=== PATIENT | female | born 1965 | race Caucasian/White ===

== ENCOUNTER 2023-10-13 20:14 | Inpatient (IN) ==
[2023-10-13] MEDS ORDERED: IOPAMIDOL 100 ML BOTTLE IV ONE (20:15)
[2023-10-13] MEDS ORDERED: 0.9 % SODIUM CHLORIDE 1,000 ML IV ONE (20:28)
[2023-10-13 21:05] LABS: Basophils # (Auto) 0.05 K/mcL (0.00-0.30); Basophils % (Auto) 0.4 % (0.0-2.0); Eosinophils # (Auto) 0.02 K/mcL (0.00-0.70); Eosinophils % (Auto) 0.1 % (0.0-7.0); Hematocrit 41.7 % (34.1-44.9); Hemoglobin 14.6 g/dL (11.2-15.7); Lymphocytes # (Auto) 1.33 K/mcL (1.50-4.80); Lymphocytes % (Auto) 9.5 % (15.5-49.0); Mean Platelet Volume 8.8 fL (8.8-12.5); Monocytes # (Auto) 1.16 K/mcL (0.10-0.90); Monocytes % (Auto) 8.3 % (1.0-12.0); Neutrophils % (Auto) 81.2 % (38.0-78.0); Platelet Count 442 K/mcL (140-440); RBC 3.79 M/mcL (3.59-5.38); Red Cell Distribution Width 12.1 % (11.5-14.5)
[2023-10-13 21:09] LABS: ALT/SGPT 15 U/L (<40); AST/SGOT 23 U/L (<32); Albumin 3.6 gm/dL (3.2-5.2); Albumin/Globulin Ratio 0.9 (1.0-2.3); Alkaline Phosphatase 156 U/L (39-117); Bilirubin,Total 0.7 mg/dL (0.1-1.0); Blood Urea Nitrogen 9 mg/dL (6-20); Calcium 9.4 mg/dL (8.6-10.4); Carbon Dioxide 30 mmol/L (22-30); Chloride 89 mmol/L (96-108); Globulin 4.1 gm/dL (2.2-3.7); Glomerular Filtration Rate 94; Glucose 117 mg/dL (70-105)
[2023-10-13 21:25] LABS: Appearance,Urine Turbid (Clear); Bacteria,Urine Few /hpf (0); Bilirubin,Urine Moderate mg/dL (Negative); Color,Urine Yellow; Culture Indicated,Urine No; Glucose,Urine (UA) 100 mg/dL (Negative); Ketones,Urine Trace mg/dL (Negative); Leukocyte Esterase,Urine Negative /uL (Negative); Nitrate,Urine Negative (Negative); PH,Urine 5.5 (5.0-9.0); Protein,Urine 30 mg/dL (Negative); Urine Blood Trace-lysed ery/mcL (Negative); Urine RBC 0 /hpf (0-3); Urine Squamous Epithelial Cell 10 /hpf (0-4); Urine WBC 6 /hpf (0-4)
[2023-10-13] MEDS ORDERED: POTASSIUM CHLORIDE 20 MEQ TABLET PO ONE (21:33)
[2023-10-13] MEDS ORDERED: HYDROmorphone 1 MG/ML SYRINGE IM ONE (22:03)
[2023-10-13] MEDS ORDERED: HYDROmorphone 1 MG/ML SYRINGE IV ONE (22:09)
[2023-10-13] MEDS: PIPERACILLIN SODIUM/TAZOBACTAM 3.375 GM in DEXTROSE 5% IN WATER 100 ML IV SCH (22:35)
[2023-10-13] MEDS: 0.9 % SODIUM CHLORIDE 1,000 ML IV SCH (22:36)
[2023-10-13] MEDS: ONDANSETRON 4 MG/2 ML VIAL IV PRN (22:36)
[2023-10-14] MEDS: HYDROmorphone 0.5 MG/0.5 ML SYRINGE IV PRN ×7 (00:54→21:44)
[2023-10-14] MEDS: 0.9 % SODIUM CHLORIDE 1,000 ML IV SCH ×3 (04:40→23:49)
[2023-10-14] MEDS: PIPERACILLIN SODIUM/TAZOBACTAM 3.375 GM in DEXTROSE 5% IN WATER 100 ML IV SCH ×3 (05:45→21:34)
[2023-10-14 06:33] LABS: Basophils # (Auto) 0.03 K/mcL (0.00-0.30); Basophils % (Auto) 0.3 % (0.0-2.0); Eosinophils # (Auto) 0.02 K/mcL (0.00-0.70); Eosinophils % (Auto) 0.2 % (0.0-7.0); Hematocrit 36.9 % (34.1-44.9); Hemoglobin 12.4 g/dL (11.2-15.7); Lymphocytes # (Auto) 0.98 K/mcL (1.50-4.80); Lymphocytes % (Auto) 10.6 % (15.5-49.0); Mean Cell Volume 113.9 fL (80.0-100.0); Mean Corpuscular HGB Conc 33.6 g/dL (31.0-36.0); Mean Platelet Volume 9.2 fL (8.8-12.5); Monocytes # (Auto) 0.87 K/mcL (0.10-0.90); Monocytes % (Auto) 9.4 % (1.0-12.0); Neutrophils % (Auto) 79.2 % (38.0-78.0); Platelet Count 396 K/mcL (140-440); RBC 3.24 M/mcL (3.59-5.38); Red Cell Distribution Width 12.3 % (11.5-14.5); WBC 9.3 K/mcL (4.5-11.0)
[2023-10-14 06:47] LABS: ALT/SGPT < 5 U/L (<40); AST/SGOT 17 U/L (<32); Albumin 2.8 gm/dL (3.2-5.2); Albumin/Globulin Ratio 0.9 (1.0-2.3); Alkaline Phosphatase 124 U/L (39-117); Bilirubin,Direct 0.2 mg/dL (<0.3); Bilirubin,Total 0.6 mg/dL (0.1-1.0); Blood Urea Nitrogen 7 mg/dL (6-20); Calcium 8.3 mg/dL (8.6-10.4); Carbon Dioxide 23 mmol/L (22-30); Chloride 99 mmol/L (96-108); Globulin 3.2 gm/dL (2.2-3.7); Glomerular Filtration Rate 105; Glucose 113 mg/dL (70-105); Lactate Dehydrogenase 131 U/L (135-225); Triglycerides 98 mg/dL (<150); Uric Acid 2.8 mg/dL (2.5-8.0)
[2023-10-14] MEDS: NICOTINE 21 MG PATCH TOPICAL SCH (16:38)
[2023-10-15] MEDS: HYDROmorphone 0.5 MG/0.5 ML SYRINGE IV PRN ×5 (03:54→20:39)
[2023-10-15] MEDS: 0.9 % SODIUM CHLORIDE 1,000 ML IV SCH ×5 (04:56→20:36)
[2023-10-15] MEDS: PIPERACILLIN SODIUM/TAZOBACTAM 3.375 GM in DEXTROSE 5% IN WATER 100 ML IV SCH ×3 (05:54→22:05)
[2023-10-15 06:33] LABS: Basophils # (Auto) 0.07 K/mcL (0.00-0.30); Basophils % (Auto) 0.8 % (0.0-2.0); Eosinophils # (Auto) 0.04 K/mcL (0.00-0.70); Eosinophils % (Auto) 0.5 % (0.0-7.0); Hematocrit 35.3 % (34.1-44.9); Hemoglobin 11.9 g/dL (11.2-15.7); Lymphocytes # (Auto) 1.04 K/mcL (1.50-4.80); Lymphocytes % (Auto) 11.9 % (15.5-49.0); Mean Cell Volume 113.5 fL (80.0-100.0); Mean Corpuscular HGB Conc 33.7 g/dL (31.0-36.0); Mean Platelet Volume 8.8 fL (8.8-12.5); Monocytes # (Auto) 0.76 K/mcL (0.10-0.90); Monocytes % (Auto) 8.7 % (1.0-12.0); Neutrophils % (Auto) 77.9 % (38.0-78.0); Platelet Count 334 K/mcL (140-440); RBC 3.11 M/mcL (3.59-5.38); Red Cell Distribution Width 12.1 % (11.5-14.5); WBC 8.8 K/mcL (4.5-11.0)
[2023-10-15 07:03] LABS: ALT/SGPT 6 U/L (<40); AST/SGOT 19 U/L (<32); Albumin 2.6 gm/dL (3.2-5.2); Alkaline Phosphatase 109 U/L (39-117); Bilirubin,Direct 0.3 mg/dL (<0.3); Bilirubin,Total 0.7 mg/dL (0.1-1.0); Blood Urea Nitrogen 5 mg/dL (6-20); Calcium 8.2 mg/dL (8.6-10.4); Carbon Dioxide 23 mmol/L (22-30); Chloride 101 mmol/L (96-108); Globulin 2.7 gm/dL (2.2-3.7); Glomerular Filtration Rate 99; Glucose 84 mg/dL (70-105); Lactate Dehydrogenase 150 U/L (135-225); Phosphorous 3.1 mg/dL (2.5-4.5); Triglycerides 111 mg/dL (<150)
[2023-10-15] MEDS: NICOTINE 21 MG PATCH TOPICAL SCH (12:03)
[2023-10-15] MEDS: ONDANSETRON 4 MG/2 ML VIAL IV PRN (20:59)
[2023-10-16] MEDS: PIPERACILLIN SODIUM/TAZOBACTAM 3.375 GM in DEXTROSE 5% IN WATER 100 ML IV SCH ×3 (05:34→22:21)
[2023-10-16 06:25] LABS: Basophils # (Auto) 0.04 K/mcL (0.00-0.30); Basophils % (Auto) 0.5 % (0.0-2.0); Eosinophils # (Auto) 0.04 K/mcL (0.00-0.70); Eosinophils % (Auto) 0.5 % (0.0-7.0); Hematocrit 34.8 % (34.1-44.9); Hemoglobin 11.8 g/dL (11.2-15.7); Lymphocytes % (Auto) 13.7 % (15.5-49.0); Mean Cell Volume 112.6 fL (80.0-100.0); Mean Corpuscular HGB Conc 33.9 g/dL (31.0-36.0); Mean Platelet Volume 8.9 fL (8.8-12.5); Monocytes # (Auto) 0.69 K/mcL (0.10-0.90); Monocytes % (Auto) 8.6 % (1.0-12.0); Neutrophils % (Auto) 76.5 % (38.0-78.0); Platelet Count 384 K/mcL (140-440); RBC 3.09 M/mcL (3.59-5.38); Red Cell Distribution Width 11.8 % (11.5-14.5)
[2023-10-16 06:39] LABS: ALT/SGPT < 5 U/L (<40); AST/SGOT 16 U/L (<32); Albumin 2.6 gm/dL (3.2-5.2); Albumin/Globulin Ratio 0.9 (1.0-2.3); Alkaline Phosphatase 105 U/L (39-117); Bilirubin,Direct 0.2 mg/dL (<0.3); Bilirubin,Total 0.6 mg/dL (0.1-1.0); Blood Urea Nitrogen 4 mg/dL (6-20); Calcium 8.3 mg/dL (8.6-10.4); Carbon Dioxide 23 mmol/L (22-30); Chloride 100 mmol/L (96-108); Globulin 2.9 gm/dL (2.2-3.7); Glomerular Filtration Rate 99; Glucose 85 mg/dL (70-105); Lactate Dehydrogenase 155 U/L (135-225); Triglycerides 117 mg/dL (<150); Uric Acid 2.1 mg/dL (2.5-8.0)
[2023-10-16] MEDS: HYDROmorphone 0.5 MG/0.5 ML SYRINGE IV PRN ×4 (07:43→19:20)
[2023-10-16] MEDS: 0.9 % SODIUM CHLORIDE 1,000 ML IV SCH ×3 (07:43→22:23)
[2023-10-16] MEDS: NICOTINE 21 MG PATCH TOPICAL SCH (10:04)
[2023-10-17] MEDS: PIPERACILLIN SODIUM/TAZOBACTAM 3.375 GM in DEXTROSE 5% IN WATER 100 ML IV SCH ×3 (06:05→22:27)
[2023-10-17] MEDS: HYDROmorphone 0.5 MG/0.5 ML SYRINGE IV PRN ×5 (06:08→22:27)
[2023-10-17 06:33] LABS: ALT/SGPT 6 U/L (<40); AST/SGOT 16 U/L (<32); Albumin 2.8 gm/dL (3.2-5.2); Alkaline Phosphatase 100 U/L (39-117); Bilirubin,Direct 0.2 mg/dL (<0.3); Bilirubin,Total 0.6 mg/dL (0.1-1.0); Blood Urea Nitrogen 3 mg/dL (6-20); Calcium 8.5 mg/dL (8.6-10.4); Carbon Dioxide 25 mmol/L (22-30); Chloride 102 mmol/L (96-108); Globulin 2.9 gm/dL (2.2-3.7); Glomerular Filtration Rate 105; Glucose 91 mg/dL (70-105); Lactate Dehydrogenase 179 U/L (135-225); Phosphorous 2.9 mg/dL (2.5-4.5); Triglycerides 129 mg/dL (<150); Uric Acid 1.8 mg/dL (2.5-8.0)
[2023-10-17] MEDS: NICOTINE 21 MG PATCH TOPICAL SCH (10:05)
[2023-10-17] MEDS: 0.9 % SODIUM CHLORIDE 1,000 ML IV SCH ×3 (12:46→22:27)
[2023-10-17] MEDS: POTASSIUM CHLORIDE 20 MEQ PACKET PO SCH ×2 (13:22→17:02)
[2023-10-17] MEDS: POLYETHYLENE GLYCOL 3350 17 GM PACKET PO SCH ×5 (13:23→23:19)
[2023-10-17] MEDS: ONDANSETRON 4 MG/2 ML VIAL IV PRN (19:13)
[2023-10-18] MEDS: HYDROmorphone 0.5 MG/0.5 ML SYRINGE IV PRN ×2 (04:23→08:49)
[2023-10-18] MEDS: PIPERACILLIN SODIUM/TAZOBACTAM 3.375 GM in DEXTROSE 5% IN WATER 100 ML IV SCH (06:07)
[2023-10-18 06:26] LABS: Basophils # (Auto) 0.06 K/mcL (0.00-0.30); Basophils % (Auto) 0.8 % (0.0-2.0); Eosinophils # (Auto) 0.08 K/mcL (0.00-0.70); Eosinophils % (Auto) 1.1 % (0.0-7.0); Hematocrit 35.9 % (34.1-44.9); Lymphocytes # (Auto) 1.22 K/mcL (1.50-4.80); Lymphocytes % (Auto) 16.5 % (15.5-49.0); Mean Cell Volume 113.2 fL (80.0-100.0); Mean Corpuscular HGB Conc 33.4 g/dL (31.0-36.0); Mean Platelet Volume 8.6 fL (8.8-12.5); Monocytes # (Auto) 0.77 K/mcL (0.10-0.90); Monocytes % (Auto) 10.4 % (1.0-12.0); Neutrophils % (Auto) 70.9 % (38.0-78.0); Platelet Count 369 K/mcL (140-440); RBC 3.17 M/mcL (3.59-5.38); Red Cell Distribution Width 12.4 % (11.5-14.5); WBC 7.4 K/mcL (4.5-11.0)
[2023-10-18 07:29] LABS: Phosphorous 2.6 mg/dL (2.5-4.5)
[2023-10-18 07:34] LABS: ALT/SGPT < 5 U/L (<40); AST/SGOT 13 U/L (<32); Albumin 2.8 gm/dL (3.2-5.2); Alkaline Phosphatase 92 U/L (39-117); Bilirubin,Total 0.5 mg/dL (0.1-1.0); Blood Urea Nitrogen 2 mg/dL (6-20); Calcium 8.3 mg/dL (8.6-10.4); Carbon Dioxide 23 mmol/L (22-30); Chloride 101 mmol/L (96-108); Globulin 2.8 gm/dL (2.2-3.7); Glomerular Filtration Rate 105; Glucose 87 mg/dL (70-105)
[2023-10-18] MEDS: POTASSIUM CHLORIDE 20 MEQ PACKET PO SCH (08:48)
[2023-10-18] MEDS ORDERED: IOPAMIDOL 100 ML BOTTLE IV ONE (08:59)
[2023-10-18] MEDS: NICOTINE 21 MG PATCH TOPICAL SCH (09:09)
[2023-10-18] MEDS: 0.9 % SODIUM CHLORIDE 1,000 ML IV SCH (11:53)
== END 2023-10-18 13:51 | disposition home or self-care (01) | DRG 392 ==
LOC: ED 20:14 → MEDSUR 21:52
PROVIDERS: ADMIT Family Medicine Adult Medicine; ATTEND Family Medicine Adult Medicine

== ENCOUNTER 2025-01-25 10:36 | Inpatient (IN) ==
[2025-01-25] MEDS: ACETAMINOPHEN 1,000 MG/100 ML BAG IV SCH (12:06)
[2025-01-25] MEDS: ONDANSETRON 4 MG/2 ML VIAL IV PRN (12:06)
[2025-01-25] MEDS: 0.9 % SODIUM CHLORIDE 1,000 ML IV SCH (12:07)
[2025-01-25] MEDS: HYDROmorphone 0.5 MG/0.5 ML SYRINGE IV PRN (12:07)
[2025-01-25 12:13] LABS: Basophils # (Auto) 0.05 K/mcL (0.00-0.30); Basophils % (Auto) 0.3 % (0.0-2.0); Eosinophils # (Auto) 0.11 K/mcL (0.00-0.70); Eosinophils % (Auto) 0.7 % (0.0-7.0); Hematocrit 43.4 % (34.1-44.9); Hemoglobin 14.7 g/dL (11.2-15.7); Lymphocytes # (Auto) 2.82 K/mcL (1.50-4.80); Lymphocytes % (Auto) 17.4 % (15.5-49.0); Mean Cell Volume 115.4 fL (80.0-100.0); Mean Corpuscular HGB Conc 33.9 g/dL (31.0-36.0); Mean Platelet Volume 9.5 fL (8.8-12.5); Monocytes % (Auto) 6.2 % (1.0-12.0); Neutrophils % (Auto) 75.1 % (38.0-78.0); Platelet Count 240 K/mcL (140-440); RBC 3.76 M/mcL (3.59-5.38); Red Cell Distribution Width 12.9 % (11.5-14.5); WBC 16.2 K/mcL (4.5-11.0)
[2025-01-25 12:28] LABS: INR 0.9 (0.9-1.1); Prothrombin Time 12.6 sec (11.9-14.5)
[2025-01-25 12:29] LABS: ALT/SGPT 27 U/L (<40); AST/SGOT 52 U/L (<32); Albumin 3.4 gm/dL (3.2-5.2); Alkaline Phosphatase 164 U/L (39-117); Bilirubin,Direct 0.5 mg/dL (<0.3); Bilirubin,Total 1.2 mg/dL (0.1-1.0); Blood Urea Nitrogen 11 mg/dL (8-23); C-Reactive Protein < 0.30 mg/dL (0.03-0.80); Calcium 9.1 mg/dL (8.6-10.4); Carbon Dioxide 26 mmol/L (22-30); Chloride 96 mmol/L (96-108); Globulin 3.3 gm/dL (2.2-3.7); Glomerular Filtration Rate 93; Glucose 117 mg/dL (70-105); Lactate Dehydrogenase 247 U/L (135-225); Phosphorous 2.8 mg/dL (2.5-4.5); Potassium 3.4 mmol/L (3.3-5.1); Sodium 136 mmol/L (133-145); Triglycerides 135 mg/dL (<150); Uric Acid 4.1 mg/dL (2.5-8.0)
[2025-01-25] MEDS ORDERED: IOHEXOL IV ONE (13:25)
[2025-01-25] MEDS: PIPERACILLIN SODIUM/TAZOBACTAM 3.375 GM in DEXTROSE 5% IN WATER 50 ML IV SCH (13:45)
[2025-01-25] MEDS: PANTOPRAZOLE 40 MG VIAL IV SCH (17:14)
[2025-01-25] MEDS ORDERED: LORazepam 2 MG/ML VIAL IV PRN (17:31)
[2025-01-25] MEDS: NICOTINE 21 MG PATCH TOPICAL SCH (17:32)
[2025-01-25] MEDS: PIPERACILLIN SODIUM/TAZOBACTAM 3.375 GM in DEXTROSE 5% IN WATER 100 ML IV SCH (18:12)
[2025-01-25] MEDS: diphenhydrAMINE 50 MG/ML VIAL IV SCH (19:47)
[2025-01-26 06:56] LABS: Basophils # (Auto) 0.03 K/mcL (0.00-0.30); Basophils % (Auto) 0.4 % (0.0-2.0); Eosinophils # (Auto) 0.08 K/mcL (0.00-0.70); Eosinophils % (Auto) 1.2 % (0.0-7.0); Hematocrit 33.1 % (34.1-44.9); Hemoglobin 11.2 g/dL (11.2-15.7); Lymphocytes # (Auto) 1.78 K/mcL (1.50-4.80); Lymphocytes % (Auto) 26.4 % (15.5-49.0); Mean Cell Volume 116.5 fL (80.0-100.0); Mean Corpuscular HGB Conc 33.8 g/dL (31.0-36.0); Mean Platelet Volume 8.9 fL (8.8-12.5); Monocytes # (Auto) 0.55 K/mcL (0.10-0.90); Monocytes % (Auto) 8.2 % (1.0-12.0); Neutrophils % (Auto) 63.7 % (38.0-78.0); Platelet Count 160 K/mcL (140-440); RBC 2.84 M/mcL (3.59-5.38); Red Cell Distribution Width 13.2 % (11.5-14.5); WBC 6.7 K/mcL (4.5-11.0)
[2025-01-26 07:06] LABS: ALT/SGPT 31 U/L (<40); AST/SGOT 92 U/L (<32); Albumin 2.5 gm/dL (3.2-5.2); Albumin/Globulin Ratio 1.1 (1.0-2.3); Alkaline Phosphatase 111 U/L (39-117); Bilirubin,Direct 0.5 mg/dL (<0.3); Bilirubin,Total 0.9 mg/dL (0.1-1.0); Blood Urea Nitrogen 9 mg/dL (8-23); Calcium 7.7 mg/dL (8.6-10.4); Carbon Dioxide 22 mmol/L (22-30); Chloride 104 mmol/L (96-108); Globulin 2.3 gm/dL (2.2-3.7); Glomerular Filtration Rate 93; Glucose 94 mg/dL (70-105); Lactate Dehydrogenase 198 U/L (135-225); Phosphorous 3.3 mg/dL (2.5-4.5); Potassium 3.1 mmol/L (3.3-5.1); Sodium 136 mmol/L (133-145); Triglycerides 79 mg/dL (<150); Uric Acid 2.8 mg/dL (2.5-8.0)
[2025-01-26] MEDS: POTASSIUM CHLORIDE 10 MEQ/100 ML BAG IV SCH (11:57)
[2025-01-26] MEDS: POTASSIUM CHLORIDE 40 MEQ in DEXTROSE 5% IN WATER 500 ML IV STA (13:52)
[2025-01-26] MEDS: HEPARIN 10 UNITS/ML 5ML FLUSH IV SCH ×2 (20:33)
[2025-01-26] MEDS: 0.9 % SODIUM CHLORIDE 10 ML SYRINGE IV SCH (20:34)
[2025-01-27 07:50] LABS: Basophils # (Auto) 0.04 K/mcL (0.00-0.30); Basophils % (Auto) 0.6 % (0.0-2.0); Eosinophils % (Auto) 1.6 % (0.0-7.0); Hematocrit 33.4 % (34.1-44.9); Lymphocytes # (Auto) 0.95 K/mcL (1.50-4.80); Lymphocytes % (Auto) 15.1 % (15.5-49.0); Mean Cell Volume 118.4 fL (80.0-100.0); Mean Corpuscular HGB Conc 32.9 g/dL (31.0-36.0); Mean Platelet Volume 8.9 fL (8.8-12.5); Monocytes # (Auto) 0.41 K/mcL (0.10-0.90); Monocytes % (Auto) 6.5 % (1.0-12.0); Neutrophils % (Auto) 75.9 % (38.0-78.0); Platelet Count 147 K/mcL (140-440); RBC 2.82 M/mcL (3.59-5.38); WBC 6.3 K/mcL (4.5-11.0)
[2025-01-27 07:59] LABS: ALT/SGPT 108 U/L (<40); AST/SGOT 363 U/L (<32); Albumin 2.4 gm/dL (3.2-5.2); Alkaline Phosphatase 111 U/L (39-117); Bilirubin,Direct 0.5 mg/dL (<0.3); Bilirubin,Total 0.9 mg/dL (0.1-1.0); Blood Urea Nitrogen 6 mg/dL (8-23); Calcium 7.9 mg/dL (8.6-10.4); Carbon Dioxide 21 mmol/L (22-30); Chloride 104 mmol/L (96-108); Globulin 2.4 gm/dL (2.2-3.7); Glomerular Filtration Rate 98; Glucose 133 mg/dL (70-105); Lactate Dehydrogenase 353 U/L (135-225); Phosphorous 2.8 mg/dL (2.5-4.5); Potassium 4.1 mmol/L (3.3-5.1); Sodium 134 mmol/L (133-145); Triglycerides 70 mg/dL (<150)
[2025-01-27] MEDS ORDERED: TPN PER PHARMACY IV SCH (15:29)
[2025-01-27] MEDS ORDERED: DEXTROSE 50% 50 ML SYRINGE IV PRN (15:32)
[2025-01-27] MEDS: SODIUM CHLORIDE IV SCH (16:55)
[2025-01-27] MEDS: [UNRECOGNIZED DRUG - OTHER] IV SCH (16:55)
[2025-01-27] MEDS: MAGNESIUM SULFATE IV SCH (16:55)
[2025-01-27] MEDS: POTASSIUM PHOSPHATE IV SCH (16:55)
[2025-01-27] MEDS: FAT EMULSION 20% 250 ML in PREMIX 1 BAG IV SCH (16:55)
[2025-01-27] MEDS: MVI IV SCH (16:55)
[2025-01-27] MEDS: 0.9 % SODIUM CHLORIDE 1,000 ML IV SCH (17:31)
[2025-01-27] MEDS: INSULIN LISPRO 1 UNIT/0.01 ML UNIT SQ SCH (17:32)
[2025-01-28 07:03] LABS: Basophils # (Auto) 0.02 K/mcL (0.00-0.30); Basophils % (Auto) 0.3 % (0.0-2.0); Eosinophils # (Auto) 0.18 K/mcL (0.00-0.70); Hematocrit 33.9 % (34.1-44.9); Hemoglobin 11.3 g/dL (11.2-15.7); Lymphocytes # (Auto) 1.38 K/mcL (1.50-4.80); Lymphocytes % (Auto) 23.2 % (15.5-49.0); Mean Cell Volume 118.5 fL (80.0-100.0); Mean Corpuscular HGB Conc 33.3 g/dL (31.0-36.0); Mean Platelet Volume 9.1 fL (8.8-12.5); Monocytes # (Auto) 0.54 K/mcL (0.10-0.90); Monocytes % (Auto) 9.1 % (1.0-12.0); Neutrophils % (Auto) 64.1 % (38.0-78.0); Platelet Count 133 K/mcL (140-440); RBC 2.86 M/mcL (3.59-5.38); Red Cell Distribution Width 12.9 % (11.5-14.5)
[2025-01-28 07:29] LABS: ALT/SGPT 95 U/L (<40); AST/SGOT 153 U/L (<32); Albumin 2.4 gm/dL (3.2-5.2); Alkaline Phosphatase 115 U/L (39-117); Bilirubin,Direct 0.4 mg/dL (<0.3); Bilirubin,Total 0.6 mg/dL (0.1-1.0); Blood Urea Nitrogen 5 mg/dL (8-23); Calcium 8.2 mg/dL (8.6-10.4); Carbon Dioxide 25 mmol/L (22-30); Chloride 107 mmol/L (96-108); Globulin 2.4 gm/dL (2.2-3.7); Glomerular Filtration Rate 93; Glucose 93 mg/dL (70-105); Lactate Dehydrogenase 190 U/L (135-225); Phosphorous 2.8 mg/dL (2.5-4.5); Potassium 3.8 mmol/L (3.3-5.1); Sodium 139 mmol/L (133-145); Triglycerides 81 mg/dL (<150); Uric Acid 1.7 mg/dL (2.5-8.0)
[2025-01-28] MEDS: SODIUM CHLORIDE IV SCH (17:19)
[2025-01-28] MEDS: MVI IV SCH (17:19)
[2025-01-28] MEDS: MAGNESIUM SULFATE IV SCH (17:19)
[2025-01-28] MEDS: [UNRECOGNIZED DRUG - OTHER] IV SCH (17:19)
[2025-01-28] MEDS: POTASSIUM PHOSPHATE IV SCH (17:19)
[2025-01-29 07:28] LABS: ALT/SGPT 55 U/L (<40); AST/SGOT 52 U/L (<32); Albumin 2.2 gm/dL (3.2-5.2); Alkaline Phosphatase 97 U/L (39-117); Bilirubin,Direct 0.3 mg/dL (<0.3); Bilirubin,Total 0.5 mg/dL (0.1-1.0); Blood Urea Nitrogen 5 mg/dL (8-23); Calcium 7.6 mg/dL (8.6-10.4); Carbon Dioxide 21 mmol/L (22-30); Chloride 108 mmol/L (96-108); Globulin 2.2 gm/dL (2.2-3.7); Glomerular Filtration Rate 104; Glucose 119 mg/dL (70-105); Lactate Dehydrogenase 166 U/L (135-225); Phosphorous 3.5 mg/dL (2.5-4.5); Potassium 3.6 mmol/L (3.3-5.1); Sodium 137 mmol/L (133-145); Triglycerides 81 mg/dL (<150); Uric Acid 1.3 mg/dL (2.5-8.0)
[2025-01-29] MEDS: [UNRECOGNIZED DRUG - OTHER] IV SCH (12:58)
[2025-01-29] MEDS: POTASSIUM PHOSPHATE IV SCH (12:58)
[2025-01-29] MEDS: SODIUM CHLORIDE IV SCH (12:58)
[2025-01-29] MEDS: MAGNESIUM SULFATE IV SCH (12:58)
[2025-01-29] MEDS: MVI IV SCH (12:58)
[2025-01-30 06:40] LABS: Erythrocyte Sedimentation Rate 3 mm/hr (0-30)
[2025-01-30 06:49] LABS: Basophils # (Auto) 0.04 K/mcL (0.00-0.30); Basophils % (Auto) 0.5 % (0.0-2.0); Eosinophils # (Auto) 0.16 K/mcL (0.00-0.70); Eosinophils % (Auto) 2.2 % (0.0-7.0); Hematocrit 31.9 % (34.1-44.9); Hemoglobin 10.3 g/dL (11.2-15.7); Lymphocytes # (Auto) 1.74 K/mcL (1.50-4.80); Lymphocytes % (Auto) 23.8 % (15.5-49.0); Mean Cell Volume 121.8 fL (80.0-100.0); Mean Corpuscular HGB Conc 32.3 g/dL (31.0-36.0); Mean Platelet Volume 9.5 fL (8.8-12.5); Monocytes # (Auto) 0.63 K/mcL (0.10-0.90); Monocytes % (Auto) 8.6 % (1.0-12.0); Neutrophils % (Auto) 63.9 % (38.0-78.0); Platelet Count 117 K/mcL (140-440); RBC 2.62 M/mcL (3.59-5.38); Red Cell Distribution Width 13.5 % (11.5-14.5); WBC 7.3 K/mcL (4.5-11.0)
[2025-01-30 07:25] LABS: Prealbumin 12.2 mg/dL (20.0-40.0)
[2025-01-30 07:34] LABS: ALT/SGPT 41 U/L (<40); AST/SGOT 38 U/L (<32); Albumin 2.5 gm/dL (3.2-5.2); Albumin/Globulin Ratio 1.1 (1.0-2.3); Alkaline Phosphatase 99 U/L (39-117); Bilirubin,Direct < 0.2 mg/dL (0-0.3); Bilirubin,Total 0.4 mg/dL (0.1-1.0); Blood Urea Nitrogen 6 mg/dL (8-23); Calcium 8.2 mg/dL (8.6-10.4); Carbon Dioxide 21 mmol/L (22-30); Chloride 109 mmol/L (96-108); Globulin 2.3 gm/dL (2.2-3.7); Glomerular Filtration Rate 104; Glucose 102 mg/dL (70-105); Lactate Dehydrogenase 225 U/L (135-225); Phosphorous 3.6 mg/dL (2.5-4.5); Potassium 4.2 mmol/L (3.3-5.1); Sodium 138 mmol/L (133-145); Triglycerides 100 mg/dL (<150); Uric Acid 1.3 mg/dL (2.5-8.0)
[2025-01-30] MEDS: [UNRECOGNIZED DRUG - OTHER] IV SCH (08:49)
[2025-01-30] MEDS: MVI IV SCH (08:49)
[2025-01-30] MEDS: MAGNESIUM SULFATE IV SCH (08:49)
[2025-01-30] MEDS: SODIUM CHLORIDE IV SCH (08:49)
[2025-01-30] MEDS: POTASSIUM PHOSPHATE IV SCH (08:49)
[2025-01-31 06:22] LABS: Basophils # (Auto) 0.04 K/mcL (0.00-0.30); Basophils % (Auto) 0.6 % (0.0-2.0); Eosinophils # (Auto) 0.21 K/mcL (0.00-0.70); Eosinophils % (Auto) 2.9 % (0.0-7.0); Hematocrit 29.3 % (34.1-44.9); Hemoglobin 9.4 g/dL (11.2-15.7); Lymphocytes # (Auto) 1.79 K/mcL (1.50-4.80); Lymphocytes % (Auto) 24.9 % (15.5-49.0); Mean Cell Volume 121.6 fL (80.0-100.0); Mean Corpuscular HGB Conc 32.1 g/dL (31.0-36.0); Mean Platelet Volume 9.2 fL (8.8-12.5); Monocytes # (Auto) 0.79 K/mcL (0.10-0.90); Neutrophils % (Auto) 59.6 % (38.0-78.0); Platelet Count 129 K/mcL (140-440); RBC 2.41 M/mcL (3.59-5.38); Red Cell Distribution Width 13.5 % (11.5-14.5); WBC 7.2 K/mcL (4.5-11.0)
[2025-01-31 07:04] LABS: ALT/SGPT 32 U/L (<40); AST/SGOT 27 U/L (<32); Albumin 2.7 gm/dL (3.2-5.2); Albumin/Globulin Ratio 1.2 (1.0-2.3); Alkaline Phosphatase 95 U/L (39-117); Bilirubin,Direct 0.2 mg/dL (<0.3); Bilirubin,Total 0.4 mg/dL (0.1-1.0); Blood Urea Nitrogen 9 mg/dL (8-23); Calcium 8.4 mg/dL (8.6-10.4); Carbon Dioxide 23 mmol/L (22-30); Chloride 109 mmol/L (96-108); Globulin 2.3 gm/dL (2.2-3.7); Glomerular Filtration Rate 112; Glucose 76 mg/dL (70-105); Lactate Dehydrogenase 192 U/L (135-225); Phosphorous 3.5 mg/dL (2.5-4.5); Potassium 4.5 mmol/L (3.3-5.1); Sodium 138 mmol/L (133-145); Triglycerides 124 mg/dL (<150); Uric Acid 1.3 mg/dL (2.5-8.0)
[2025-01-31 07:20] LABS: Prealbumin 13.9 mg/dL (20.0-40.0)
[2025-01-31] MEDS: SODIUM CHLORIDE IV SCH (09:48)
[2025-01-31] MEDS: MAGNESIUM SULFATE IV SCH (09:48)
[2025-01-31] MEDS: [UNRECOGNIZED DRUG - OTHER] IV SCH (09:48)
[2025-01-31] MEDS: MVI IV SCH (09:48)
[2025-01-31] MEDS: POTASSIUM PHOSPHATE IV SCH (09:48)
[2025-02-01] MEDS: MVI IV SCH ×2 (06:59→07:04)
[2025-02-01] MEDS: POTASSIUM PHOSPHATE IV SCH ×2 (06:59→07:04)
[2025-02-01] MEDS: MAGNESIUM SULFATE IV SCH ×2 (06:59→07:04)
[2025-02-01] MEDS: [UNRECOGNIZED DRUG - OTHER] IV SCH ×2 (06:59→07:04)
[2025-02-01] MEDS: SODIUM CHLORIDE IV SCH ×2 (06:59→07:04)
[2025-02-01 07:00] LABS: Basophils # (Auto) 0.03 K/mcL (0.00-0.30); Basophils % (Auto) 0.5 % (0.0-2.0); Eosinophils # (Auto) 0.26 K/mcL (0.00-0.70); Eosinophils % (Auto) 4.2 % (0.0-7.0); Hematocrit 27.3 % (34.1-44.9); Hemoglobin 8.5 g/dL (11.2-15.7); Lymphocytes # (Auto) 1.71 K/mcL (1.50-4.80); Lymphocytes % (Auto) 27.9 % (15.5-49.0); Mean Cell Volume 126.4 fL (80.0-100.0); Mean Corpuscular HGB Conc 31.1 g/dL (31.0-36.0); Mean Platelet Volume 9.4 fL (8.8-12.5); Monocytes # (Auto) 0.82 K/mcL (0.10-0.90); Monocytes % (Auto) 13.4 % (1.0-12.0); Neutrophils % (Auto) 52.9 % (38.0-78.0); Platelet Count 156 K/mcL (140-440); RBC 2.16 M/mcL (3.59-5.38); WBC 6.1 K/mcL (4.5-11.0)
[2025-02-01 10:03] LABS: ALT/SGPT 24 U/L (<40); AST/SGOT 21 U/L (<32); Albumin 2.7 gm/dL (3.2-5.2); Albumin/Globulin Ratio 1.1 (1.0-2.3); Alkaline Phosphatase 112 U/L (39-117); Bilirubin,Direct < 0.2 mg/dL (0-0.3); Bilirubin,Total 0.3 mg/dL (0.1-1.0); Blood Urea Nitrogen 10 mg/dL (8-23); Calcium 8.3 mg/dL (8.6-10.4); Carbon Dioxide 22 mmol/L (22-30); Chloride 108 mmol/L (96-108); Globulin 2.4 gm/dL (2.2-3.7); Glomerular Filtration Rate 104; Glucose 124 mg/dL (70-105); Lactate Dehydrogenase 398 U/L (135-225); Phosphorous 3.2 mg/dL (2.5-4.5); Potassium 4.1 mmol/L (3.3-5.1); Sodium 138 mmol/L (133-145); Triglycerides 122 mg/dL (<150); Uric Acid 1.3 mg/dL (2.5-8.0)
[2025-02-02 06:20] LABS: Basophils # (Auto) 0.02 K/mcL (0.00-0.30); Basophils % (Auto) 0.3 % (0.0-2.0); Eosinophils # (Auto) 0.31 K/mcL (0.00-0.70); Eosinophils % (Auto) 4.4 % (0.0-7.0); Hematocrit 29.5 % (34.1-44.9); Hemoglobin 9.4 g/dL (11.2-15.7); Lymphocytes # (Auto) 1.26 K/mcL (1.50-4.80); Lymphocytes % (Auto) 17.7 % (15.5-49.0); Mean Cell Volume 121.9 fL (80.0-100.0); Mean Corpuscular HGB Conc 31.9 g/dL (31.0-36.0); Mean Platelet Volume 9.1 fL (8.8-12.5); Monocytes # (Auto) 0.85 K/mcL (0.10-0.90); Neutrophils % (Auto) 64.9 % (38.0-78.0); Platelet Count 214 K/mcL (140-440); RBC 2.42 M/mcL (3.59-5.38); Red Cell Distribution Width 13.7 % (11.5-14.5); WBC 7.1 K/mcL (4.5-11.0)
[2025-02-02 06:23] LABS: ALT/SGPT 20 U/L (<40); AST/SGOT 23 U/L (<32); Albumin 2.8 gm/dL (3.2-5.2); Alkaline Phosphatase 91 U/L (39-117); Bilirubin,Direct < 0.2 mg/dL (0-0.3); Bilirubin,Total 0.2 mg/dL (0.1-1.0); Blood Urea Nitrogen 9 mg/dL (8-23); Calcium 8.7 mg/dL (8.6-10.4); Carbon Dioxide 23 mmol/L (22-30); Chloride 110 mmol/L (96-108); Globulin 2.9 gm/dL (2.2-3.7); Glomerular Filtration Rate 104; Glucose 122 mg/dL (70-105); Lactate Dehydrogenase 393 U/L (135-225); Phosphorous 3.7 mg/dL (2.5-4.5); Potassium 3.9 mmol/L (3.3-5.1); Sodium 141 mmol/L (133-145); Triglycerides 118 mg/dL (<150); Uric Acid 1.4 mg/dL (2.5-8.0)
[2025-02-02] MEDS: PEG 3350/NA SULF,BICARB,CL/KCL 4,000 ML ORAL.SOL PO SCH (09:02)
[2025-02-02] MEDS: MAGNESIUM SULFATE IV SCH (10:38)
[2025-02-02] MEDS: MVI IV SCH (10:38)
[2025-02-02] MEDS: SODIUM CHLORIDE IV SCH (10:38)
[2025-02-02] MEDS: [UNRECOGNIZED DRUG - OTHER] IV SCH (10:38)
[2025-02-02] MEDS: POTASSIUM PHOSPHATE IV SCH (10:38)
[2025-02-02] MEDS: BISACODYL 5 MG TABLET PO SCH ×2 (12:17→17:54)
[2025-02-02] MEDS: MAGNESIUM CITRATE 300 ML ORAL.SOL PO SCH (13:30)
[2025-02-02] MEDS: METOCLOPRAMIDE 10 MG/2 ML VIAL IV SCH (17:13)
[2025-02-03 07:08] LABS: ALT/SGPT 17 U/L (<40); AST/SGOT 21 U/L (<32); Albumin 2.8 gm/dL (3.2-5.2); Albumin/Globulin Ratio 1.1 (1.0-2.3); Alkaline Phosphatase 83 U/L (39-117); Bilirubin,Direct < 0.2 mg/dL (0-0.3); Bilirubin,Total 0.2 mg/dL (0.1-1.0); Blood Urea Nitrogen 9 mg/dL (8-23); Calcium 8.3 mg/dL (8.6-10.4); Carbon Dioxide 22 mmol/L (22-30); Chloride 107 mmol/L (96-108); Globulin 2.6 gm/dL (2.2-3.7); Glomerular Filtration Rate 104; Glucose 108 mg/dL (70-105); Lactate Dehydrogenase 220 U/L (135-225); Phosphorous 3.4 mg/dL (2.5-4.5); Potassium 3.8 mmol/L (3.3-5.1); Sodium 138 mmol/L (133-145); Triglycerides 113 mg/dL (<150); Uric Acid 1.3 mg/dL (2.5-8.0)
[2025-02-03] MEDS: FLEETS ADULT 1 DOSE ENEMA ONE (07:24)
[2025-02-03] MEDS ORDERED: HYDROmorphone 0.5 MG/0.5 ML SYRINGE ONE ×3 (09:57→12:07)
[2025-02-03] MEDS ORDERED: SUGAMMADEX SODIUM 200 MG/2 ML VIAL IV ONE (11:39)
[2025-02-03] MEDS ORDERED: ROPIVACAINE HCL/PF 30 ML VIAL IJ ONE (11:49)
[2025-02-03] MEDS ORDERED: DROPERIDOL 5 MG/2 ML VIAL IV PRN (12:02)
[2025-02-03] MEDS ORDERED: HYDROmorphone 0.5 MG/0.5 ML SYRINGE IV PRN (12:02)
[2025-02-03] MEDS ORDERED: IPRATROPIUM/ALBUTEROL 3 ML AMPUL.NEB NEB PRN (12:02)
[2025-02-03] MEDS ORDERED: FAMOTIDINE/PF 20 MG/2 ML VIAL IV ONE (12:10)
[2025-02-03] MEDS ORDERED: VASOPRESSIN 20 UNIT/ML VIAL ONE (12:10)
[2025-02-03] MEDS: fentaNYL 100 MCG/2 ML VIAL IV PRN (12:36)
[2025-02-03] MEDS ORDERED: KETOROLAC 30 MG/ML VIAL ONE (12:37)
[2025-02-03] MEDS: METHOCARBAMOL 1,000 MG/10 ML VIAL IV ONE (12:47)
[2025-02-03] MEDS: [UNRECOGNIZED DRUG - REMARK] IV SCH ×2 (15:20→15:40)
[2025-02-03] MEDS: METOCLOPRAMIDE 10 MG/2 ML VIAL IV SCH (17:45)
[2025-02-03] MEDS: ALBUMIN HUMAN 25 GM/100 ML BAG IV ONE (20:42)
[2025-02-03] MEDS: LACTATED RINGERS 1,000 ML IV SCH (21:55)
[2025-02-04 07:05] LABS: Basophils # (Auto) 0.01 K/mcL (0.00-0.30); Basophils % (Auto) 0.1 % (0.0-2.0); Eosinophils # (Auto) 0 K/mcL (0.00-0.70); Eosinophils % (Auto) 0 % (0.0-7.0); Hematocrit 19.3 % (34.1-44.9); Hemoglobin 6.1 g/dL (11.2-15.7); Lymphocytes # (Auto) 0.74 K/mcL (1.50-4.80); Lymphocytes % (Auto) 6.3 % (15.5-49.0); Mean Cell Volume 122.9 fL (80.0-100.0); Mean Corpuscular HGB Conc 31.6 g/dL (31.0-36.0); Mean Platelet Volume 9.7 fL (8.8-12.5); Monocytes # (Auto) 1.32 K/mcL (0.10-0.90); Monocytes % (Auto) 11.3 % (1.0-12.0); Platelet Count 246 K/mcL (140-440); RBC 1.57 M/mcL (3.59-5.38); Red Cell Distribution Width 13.7 % (11.5-14.5); WBC 11.7 K/mcL (4.5-11.0)
[2025-02-04 07:39] LABS: ALT/SGPT 14 U/L (<40); AST/SGOT 17 U/L (<32); Albumin 2.5 gm/dL (3.2-5.2); Albumin/Globulin Ratio 1.1 (1.0-2.3); Alkaline Phosphatase 66 U/L (39-117); Bilirubin,Direct < 0.2 mg/dL (0-0.3); Bilirubin,Total < 0.2 mg/dL (0.1-1.0); Blood Urea Nitrogen 11 mg/dL (8-23); Calcium 8.1 mg/dL (8.6-10.4); Carbon Dioxide 20 mmol/L (22-30); Chloride 104 mmol/L (96-108); Globulin 2.2 gm/dL (2.2-3.7); Glomerular Filtration Rate 104; Glucose 699 mg/dL (70-105); Lactate Dehydrogenase 454 U/L (135-225); Potassium 5.5 mmol/L (3.3-5.1); Sodium 133 mmol/L (133-145); Triglycerides 66 mg/dL (<150); Uric Acid 1.4 mg/dL (2.5-8.0)
[2025-02-04 08:52] LABS: Basophils # (Auto) 0.02 K/mcL (0.00-0.30); Basophils % (Auto) 0.2 % (0.0-2.0); Eosinophils # (Auto) 0 K/mcL (0.00-0.70); Eosinophils % (Auto) 0 % (0.0-7.0); Hematocrit 20.6 % (34.1-44.9); Hemoglobin 6.4 g/dL (11.2-15.7); Lymphocytes # (Auto) 0.94 K/mcL (1.50-4.80); Lymphocytes % (Auto) 7.8 % (15.5-49.0); Mean Cell Volume 122.6 fL (80.0-100.0); Mean Corpuscular HGB Conc 31.1 g/dL (31.0-36.0); Mean Platelet Volume 9.4 fL (8.8-12.5); Monocytes # (Auto) 1.31 K/mcL (0.10-0.90); Monocytes % (Auto) 10.9 % (1.0-12.0); Neutrophils % (Auto) 80.7 % (38.0-78.0); Platelet Count 251 K/mcL (140-440); RBC 1.68 M/mcL (3.59-5.38); Red Cell Distribution Width 13.7 % (11.5-14.5)
[2025-02-04 09:44] LABS: ALT/SGPT 15 U/L (<40); AST/SGOT 19 U/L (<32); Albumin 2.7 gm/dL (3.2-5.2); Albumin/Globulin Ratio 1.1 (1.0-2.3); Alkaline Phosphatase 69 U/L (39-117); Bilirubin,Direct < 0.2 mg/dL (0-0.3); Bilirubin,Total < 0.2 mg/dL (0.1-1.0); Blood Urea Nitrogen 11 mg/dL (8-23); Carbon Dioxide 21 mmol/L (22-30); Chloride 108 mmol/L (96-108); Globulin 2.4 gm/dL (2.2-3.7); Glomerular Filtration Rate 112; Glucose 129 mg/dL (70-105); Lactate Dehydrogenase 205 U/L (135-225); Phosphorous 4.7 mg/dL (2.5-4.5); Potassium 4.1 mmol/L (3.3-5.1); Sodium 138 mmol/L (133-145); Triglycerides 76 mg/dL (<150); Uric Acid 1.3 mg/dL (2.5-8.0)
[2025-02-04] MEDS: diphenhydrAMINE 50 MG/ML VIAL IV PRN (09:44)
[2025-02-04] MEDS: 0.9 % SODIUM CHLORIDE 250 ML IV SCH (12:10)
[2025-02-04] MEDS ORDERED: oxyCODONE IR 5 MG TABLET PO PRN (14:09)
[2025-02-04] MEDS ORDERED: oxyCODONE 10 MG TAB.ER.12H PO SCH (14:15)
[2025-02-04] MEDS: oxyCODONE IR 5 MG TABLET PO PRN (14:19)
[2025-02-04] MEDS: [UNRECOGNIZED DRUG - REMARK] IV SCH (15:27)
[2025-02-05 08:49] LABS: ALT/SGPT 16 U/L (<40); AST/SGOT 19 U/L (<32); Albumin 2.7 gm/dL (3.2-5.2); Albumin/Globulin Ratio 0.8 (1.0-2.3); Alkaline Phosphatase 69 U/L (39-117); Bilirubin,Direct 0.2 mg/dL (<0.3); Bilirubin,Total 0.5 mg/dL (0.1-1.0); Blood Urea Nitrogen 9 mg/dL (8-23); Calcium 8.8 mg/dL (8.6-10.4); Carbon Dioxide 22 mmol/L (22-30); Chloride 104 mmol/L (96-108); Globulin 3.2 gm/dL (2.2-3.7); Glomerular Filtration Rate 98; Glucose 123 mg/dL (70-105); Lactate Dehydrogenase 181 U/L (135-225); Phosphorous 3.5 mg/dL (2.5-4.5); Potassium 4.2 mmol/L (3.3-5.1); Sodium 135 mmol/L (133-145); Triglycerides 101 mg/dL (<150); Uric Acid 1.1 mg/dL (2.5-8.0)
[2025-02-05] MEDS: [UNRECOGNIZED DRUG - REMARK] IV SCH (16:00)
[2025-02-05] MEDS: guaiFENesin 600 MG TAB.SR.12H PO PRN (18:06)
[2025-02-06 08:11] LABS: ALT/SGPT 20 U/L (<40); AST/SGOT 27 U/L (<32); Albumin 2.6 gm/dL (3.2-5.2); Albumin/Globulin Ratio 0.8 (1.0-2.3); Alkaline Phosphatase 93 U/L (39-117); Bilirubin,Direct < 0.2 mg/dL (0-0.3); Bilirubin,Total 0.3 mg/dL (0.1-1.0); Blood Urea Nitrogen 11 mg/dL (8-23); Calcium 8.8 mg/dL (8.6-10.4); Carbon Dioxide 20 mmol/L (22-30); Chloride 103 mmol/L (96-108); Globulin 3.2 gm/dL (2.2-3.7); Glomerular Filtration Rate 104; Glucose 128 mg/dL (70-105); Lactate Dehydrogenase 226 U/L (135-225); Phosphorous 4.2 mg/dL (2.5-4.5); Potassium 4.4 mmol/L (3.3-5.1); Sodium 134 mmol/L (133-145); Triglycerides 97 mg/dL (<150)
[2025-02-06 08:45] LABS: Basophils # (Auto) 0.05 K/mcL (0.00-0.30); Basophils % (Auto) 0.5 % (0.0-2.0); Eosinophils # (Auto) 0.55 K/mcL (0.00-0.70); Eosinophils % (Auto) 5.4 % (0.0-7.0); Hematocrit 30.3 % (34.1-44.9); Hemoglobin 9.9 g/dL (11.2-15.7); Lymphocytes # (Auto) 0.91 K/mcL (1.50-4.80); Mean Cell Volume 107.1 fL (80.0-100.0); Mean Corpuscular HGB Conc 32.7 g/dL (31.0-36.0); Mean Platelet Volume 9.4 fL (8.8-12.5); Monocytes # (Auto) 0.98 K/mcL (0.10-0.90); Monocytes % (Auto) 9.7 % (1.0-12.0); Platelet Count 340 K/mcL (140-440); RBC 2.83 M/mcL (3.59-5.38); Red Cell Distribution Width 19.3 % (11.5-14.5); WBC 10.1 K/mcL (4.5-11.0)
[2025-02-06] MEDS: [UNRECOGNIZED DRUG - REMARK] IV SCH (15:30)
[2025-02-06] MEDS ORDERED: IOPAMIDOL 100 ML BOTTLE IV ONE (15:56)
[2025-02-07 06:20] LABS: ALT/SGPT 23 U/L (<40); AST/SGOT 31 U/L (<32); Albumin 2.7 gm/dL (3.2-5.2); Albumin/Globulin Ratio 0.8 (1.0-2.3); Alkaline Phosphatase 97 U/L (39-117); Bilirubin,Direct < 0.2 mg/dL (0-0.3); Bilirubin,Total 0.2 mg/dL (0.1-1.0); Blood Urea Nitrogen 13 mg/dL (8-23); Calcium 8.8 mg/dL (8.6-10.4); Carbon Dioxide 20 mmol/L (22-30); Chloride 103 mmol/L (96-108); Globulin 3.3 gm/dL (2.2-3.7); Glomerular Filtration Rate 104; Glucose 152 mg/dL (70-105); Lactate Dehydrogenase 183 U/L (135-225); Phosphorous 3.2 mg/dL (2.5-4.5); Potassium 3.9 mmol/L (3.3-5.1); Sodium 132 mmol/L (133-145); Triglycerides 155 mg/dL (<150)
[2025-02-07 06:22] LABS: Basophils # (Auto) 0.05 K/mcL (0.00-0.30); Basophils % (Auto) 0.5 % (0.0-2.0); Eosinophils # (Auto) 0.62 K/mcL (0.00-0.70); Eosinophils % (Auto) 5.9 % (0.0-7.0); Hematocrit 32.7 % (34.1-44.9); Hemoglobin 10.5 g/dL (11.2-15.7); Lymphocytes % (Auto) 8.5 % (15.5-49.0); Mean Cell Volume 105.5 fL (80.0-100.0); Mean Corpuscular HGB Conc 32.1 g/dL (31.0-36.0); Mean Platelet Volume 9.3 fL (8.8-12.5); Monocytes # (Auto) 1.03 K/mcL (0.10-0.90); Monocytes % (Auto) 9.7 % (1.0-12.0); Neutrophils % (Auto) 74.5 % (38.0-78.0); Platelet Count 434 K/mcL (140-440); Red Cell Distribution Width 18.3 % (11.5-14.5); WBC 10.6 K/mcL (4.5-11.0)
[2025-02-07] MEDS: [UNRECOGNIZED DRUG - REMARK] IV SCH (17:06)
[2025-02-07] MEDS: IPRATROPIUM/ALBUTEROL 3 ML AMPUL.NEB NEB SCH (18:36)
[2025-02-07] MEDS: IPRATROPIUM/ALBUTEROL 3 ML AMPUL.NEB NEB ONE (19:20)
[2025-02-07] MEDS ORDERED: VANCOMYCIN PER PHARMACY IV SCH (19:25)
[2025-02-07] MEDS: SCOPOLAMINE 1 PATCH PATCH TOPICAL SCH (19:31)
[2025-02-07] MEDS: SCOPOLAMINE 1 PATCH PATCH ONE (19:37)
[2025-02-07] MEDS: VANCOMYCIN 1,000 MG in 0.9 % SODIUM CHLORIDE 250 ML IV SCH (21:47)
[2025-02-08 06:28] LABS: ALT/SGPT 21 U/L (<40); AST/SGOT 27 U/L (<32); Albumin 2.6 gm/dL (3.2-5.2); Albumin/Globulin Ratio 0.7 (1.0-2.3); Alkaline Phosphatase 114 U/L (39-117); Bilirubin,Direct < 0.2 mg/dL (0-0.3); Bilirubin,Total 0.3 mg/dL (0.1-1.0); Blood Urea Nitrogen 13 mg/dL (8-23); Calcium 8.7 mg/dL (8.6-10.4); Carbon Dioxide 19 mmol/L (22-30); Chloride 102 mmol/L (96-108); Globulin 3.5 gm/dL (2.2-3.7); Glomerular Filtration Rate 104; Glucose 156 mg/dL (70-105); Lactate Dehydrogenase 222 U/L (135-225); Phosphorous 2.7 mg/dL (2.5-4.5); Potassium 3.6 mmol/L (3.3-5.1); Sodium 131 mmol/L (133-145); Triglycerides 111 mg/dL (<150)
[2025-02-08 07:53] LABS: Basophils # (Auto) 0.03 K/mcL (0.00-0.30); Basophils % (Auto) 0.2 % (0.0-2.0); Eosinophils # (Auto) 0.07 K/mcL (0.00-0.70); Eosinophils % (Auto) 0.4 % (0.0-7.0); Hematocrit 31.3 % (34.1-44.9); Hemoglobin 10.1 g/dL (11.2-15.7); Lymphocytes # (Auto) 0.86 K/mcL (1.50-4.80); Lymphocytes % (Auto) 4.9 % (15.5-49.0); Mean Cell Volume 107.9 fL (80.0-100.0); Mean Corpuscular HGB Conc 32.3 g/dL (31.0-36.0); Mean Platelet Volume 9.3 fL (8.8-12.5); Monocytes # (Auto) 1.77 K/mcL (0.10-0.90); Monocytes % (Auto) 10.1 % (1.0-12.0); Neutrophils % (Auto) 83.6 % (38.0-78.0); Platelet Count 418 K/mcL (140-440); Red Cell Distribution Width 18.1 % (11.5-14.5); WBC 17.6 K/mcL (4.5-11.0)
[2025-02-08] MEDS: IPRATROPIUM/ALBUTEROL 3 ML AMPUL.NEB NEB SCH (13:12)
[2025-02-08] MEDS: [UNRECOGNIZED DRUG - REMARK] IV SCH (15:40)
[2025-02-09 09:13] LABS: ALT/SGPT 21 U/L (<40); AST/SGOT 30 U/L (<32); Albumin 2.6 gm/dL (3.2-5.2); Albumin/Globulin Ratio 0.8 (1.0-2.3); Alkaline Phosphatase 107 U/L (39-117); Bilirubin,Direct < 0.2 mg/dL (0-0.3); Bilirubin,Total 0.2 mg/dL (0.1-1.0); Blood Urea Nitrogen 12 mg/dL (8-23); Calcium 8.6 mg/dL (8.6-10.4); Carbon Dioxide 21 mmol/L (22-30); Chloride 106 mmol/L (96-108); Globulin 3.1 gm/dL (2.2-3.7); Glomerular Filtration Rate 104; Glucose 123 mg/dL (70-105); Lactate Dehydrogenase 247 U/L (135-225); Phosphorous 3.4 mg/dL (2.5-4.5); Potassium 4.1 mmol/L (3.3-5.1); Sodium 138 mmol/L (133-145); Triglycerides 106 mg/dL (<150); Uric Acid 1.1 mg/dL (2.5-8.0)
[2025-02-09 10:39] LABS: Basophils # (Auto) 0.02 K/mcL (0.00-0.30); Basophils % (Auto) 0.2 % (0.0-2.0); Eosinophils # (Auto) 0.61 K/mcL (0.00-0.70); Hematocrit 28.8 % (34.1-44.9); Hemoglobin 9.2 g/dL (11.2-15.7); Lymphocytes # (Auto) 0.96 K/mcL (1.50-4.80); Lymphocytes % (Auto) 7.8 % (15.5-49.0); Mean Cell Volume 108.7 fL (80.0-100.0); Mean Corpuscular HGB Conc 31.9 g/dL (31.0-36.0); Mean Platelet Volume 9.3 fL (8.8-12.5); Monocytes # (Auto) 1.37 K/mcL (0.10-0.90); Monocytes % (Auto) 11.2 % (1.0-12.0); Neutrophils % (Auto) 74.6 % (38.0-78.0); Platelet Count 433 K/mcL (140-440); RBC 2.65 M/mcL (3.59-5.38); WBC 12.3 K/mcL (4.5-11.0)
[2025-02-09] MEDS ORDERED: IPRATROPIUM/ALBUTEROL 3 ML AMPUL.NEB NEB PRN (15:10)
[2025-02-09] MEDS: [UNRECOGNIZED DRUG - REMARK] IV SCH (16:14)
[2025-02-10 08:14] LABS: Basophils # (Auto) 0.05 K/mcL (0.00-0.30); Basophils % (Auto) 0.5 % (0.0-2.0); Eosinophils # (Auto) 0.56 K/mcL (0.00-0.70); Hematocrit 29.4 % (34.1-44.9); Hemoglobin 9.3 g/dL (11.2-15.7); Lymphocytes # (Auto) 1.07 K/mcL (1.50-4.80); Lymphocytes % (Auto) 11.4 % (15.5-49.0); Mean Cell Volume 107.3 fL (80.0-100.0); Mean Corpuscular HGB Conc 31.6 g/dL (31.0-36.0); Monocytes # (Auto) 1.12 K/mcL (0.10-0.90); Neutrophils % (Auto) 68.9 % (38.0-78.0); Platelet Count 444 K/mcL (140-440); RBC 2.74 M/mcL (3.59-5.38); Red Cell Distribution Width 17.7 % (11.5-14.5); WBC 9.4 K/mcL (4.5-11.0)
[2025-02-10 09:04] LABS: ALT/SGPT 31 U/L (<40); AST/SGOT 50 U/L (<32); Albumin 2.6 gm/dL (3.2-5.2); Albumin/Globulin Ratio 0.8 (1.0-2.3); Alkaline Phosphatase 130 U/L (39-117); Bilirubin,Direct < 0.2 mg/dL (0-0.3); Bilirubin,Total 0.2 mg/dL (0.1-1.0); Blood Urea Nitrogen 10 mg/dL (8-23); Calcium 8.7 mg/dL (8.6-10.4); Carbon Dioxide 22 mmol/L (22-30); Chloride 104 mmol/L (96-108); Globulin 3.2 gm/dL (2.2-3.7); Glomerular Filtration Rate 104; Glucose 107 mg/dL (70-105); Lactate Dehydrogenase 954 U/L (135-225); Potassium 4.5 mmol/L (3.3-5.1); Sodium 136 mmol/L (133-145); Triglycerides 135 mg/dL (<150)
[2025-02-10] MEDS: [UNRECOGNIZED DRUG - REMARK] IV SCH (16:04)
[2025-02-11 07:52] LABS: Basophils # (Auto) 0.06 K/mcL (0.00-0.30); Basophils % (Auto) 0.7 % (0.0-2.0); Eosinophils # (Auto) 0.68 K/mcL (0.00-0.70); Eosinophils % (Auto) 7.6 % (0.0-7.0); Hematocrit 28.4 % (34.1-44.9); Hemoglobin 9.1 g/dL (11.2-15.7); Lymphocytes # (Auto) 1.05 K/mcL (1.50-4.80); Lymphocytes % (Auto) 11.8 % (15.5-49.0); Mean Cell Volume 107.2 fL (80.0-100.0); Mean Platelet Volume 8.8 fL (8.8-12.5); Monocytes # (Auto) 1.01 K/mcL (0.10-0.90); Monocytes % (Auto) 11.3 % (1.0-12.0); Neutrophils % (Auto) 66.6 % (38.0-78.0); Platelet Count 452 K/mcL (140-440); RBC 2.65 M/mcL (3.59-5.38); Red Cell Distribution Width 17.2 % (11.5-14.5); WBC 8.9 K/mcL (4.5-11.0)
[2025-02-11 08:18] LABS: ALT/SGPT 36 U/L (<40); AST/SGOT 66 U/L (<32); Albumin 2.7 gm/dL (3.2-5.2); Albumin/Globulin Ratio 0.8 (1.0-2.3); Alkaline Phosphatase 139 U/L (39-117); Bilirubin,Direct < 0.2 mg/dL (0-0.3); Bilirubin,Total 0.2 mg/dL (0.1-1.0); Blood Urea Nitrogen 12 mg/dL (8-23); Calcium 8.7 mg/dL (8.6-10.4); Carbon Dioxide 21 mmol/L (22-30); Chloride 103 mmol/L (96-108); Globulin 3.2 gm/dL (2.2-3.7); Glomerular Filtration Rate 104; Glucose 101 mg/dL (70-105); Lactate Dehydrogenase 185 U/L (135-225); Phosphorous 4.5 mg/dL (2.5-4.5); Potassium 4.4 mmol/L (3.3-5.1); Sodium 134 mmol/L (133-145); Triglycerides 124 mg/dL (<150); Uric Acid 1.5 mg/dL (2.5-8.0)
[2025-02-11] MEDS: VANCOMYCIN 750 MG in 0.9 % SODIUM CHLORIDE 250 ML IV SCH (11:01)
[2025-02-11] MEDS: [UNRECOGNIZED DRUG - REMARK] IV SCH (15:14)
[2025-02-12 05:49] LABS: Basophils # (Auto) 0.08 K/mcL (0.00-0.30); Basophils % (Auto) 0.9 % (0.0-2.0); Eosinophils # (Auto) 0.58 K/mcL (0.00-0.70); Eosinophils % (Auto) 6.4 % (0.0-7.0); Hemoglobin 10.2 g/dL (11.2-15.7); Lymphocytes # (Auto) 1.75 K/mcL (1.50-4.80); Lymphocytes % (Auto) 19.2 % (15.5-49.0); Mean Cell Volume 106.3 fL (80.0-100.0); Mean Corpuscular HGB Conc 31.9 g/dL (31.0-36.0); Mean Platelet Volume 8.9 fL (8.8-12.5); Monocytes # (Auto) 1.28 K/mcL (0.10-0.90); Monocytes % (Auto) 14.1 % (1.0-12.0); Neutrophils % (Auto) 57.5 % (38.0-78.0); Platelet Count 518 K/mcL (140-440); RBC 3.01 M/mcL (3.59-5.38); Red Cell Distribution Width 16.8 % (11.5-14.5); WBC 9.1 K/mcL (4.5-11.0)
[2025-02-12 06:24] LABS: ALT/SGPT 41 U/L (<40); AST/SGOT 58 U/L (<32); Albumin 3.2 gm/dL (3.2-5.2); Albumin/Globulin Ratio 0.9 (1.0-2.3); Alkaline Phosphatase 159 U/L (39-117); Bilirubin,Direct < 0.2 mg/dL (0-0.3); Bilirubin,Total 0.3 mg/dL (0.1-1.0); Blood Urea Nitrogen 14 mg/dL (8-23); Calcium 9.2 mg/dL (8.6-10.4); Carbon Dioxide 23 mmol/L (22-30); Chloride 102 mmol/L (96-108); Globulin 3.4 gm/dL (2.2-3.7); Glomerular Filtration Rate 104; Glucose 92 mg/dL (70-105); Lactate Dehydrogenase 400 U/L (135-225); Phosphorous 3.9 mg/dL (2.5-4.5); Potassium 4.1 mmol/L (3.3-5.1); Sodium 136 mmol/L (133-145); Triglycerides 171 mg/dL (<150); Uric Acid 1.3 mg/dL (2.5-8.0)
[2025-02-12] MEDS ORDERED: MIDAZOLAM 2 MG/2 ML VIAL ONE (09:40)
[2025-02-12] MEDS ORDERED: KETAMINE 50 MG/ML Syringe IV ONE ×2 (09:40→12:45)
[2025-02-12] MEDS ORDERED: PROPOFOL 200 MG/20 ML VIAL IV ONE (09:40)
[2025-02-12] MEDS ORDERED: ONDANSETRON 4 MG/2 ML VIAL ONE (09:47)
[2025-02-12] MEDS ORDERED: ROCURONIUM 10 MG/ML ML IV ONE (09:47)
[2025-02-12] MEDS ORDERED: LIDOCAINE 2% PF 5 ML VIAL ONE (09:47)
[2025-02-12] MEDS ORDERED: ePHEDrine 50 MG/5 ML SYRINGE (ANEST) IV ONE (09:47)
[2025-02-12] MEDS ORDERED: METOCLOPRAMIDE 10 MG/2 ML VIAL ONE (09:47)
[2025-02-12] MEDS ORDERED: DEXAMETHASONE 10 MG/ML VIAL ONE (09:47)
[2025-02-12] MEDS ORDERED: GLYCOPYRROLATE 0.2 MG/ML VIAL IV ONE (09:47)
[2025-02-12] MEDS ORDERED: KETOROLAC 30 MG/ML VIAL ONE ×2 (09:47→12:50)
[2025-02-12] MEDS ORDERED: TRANEXAMIC ACID 1,000 MG/10 ML VIAL ONE (09:47)
[2025-02-12] MEDS: TOBRAMYCIN SULFATE 1.2 GM VIAL TOPICAL ONE (12:31)
[2025-02-12] MEDS ORDERED: SUGAMMADEX SODIUM 200 MG/2 ML VIAL IV ONE (12:37)
[2025-02-12] MEDS ORDERED: HYDROmorphone 0.5 MG/0.5 ML SYRINGE ONE (12:41)
[2025-02-12] MEDS ORDERED: fentaNYL 100 MCG/2 ML VIAL ONE (12:47)
[2025-02-12] MEDS ORDERED: IPRATROPIUM/ALBUTEROL 3 ML AMPUL.NEB NEB PRN ×2 (13:26→13:28)
[2025-02-12] MEDS ORDERED: fentaNYL 100 MCG/2 ML VIAL IV PRN ×2 (13:26→13:28)
[2025-02-12] MEDS ORDERED: HYDROmorphone 0.5 MG/0.5 ML SYRINGE IV PRN (13:28)
[2025-02-12] MEDS ORDERED: DROPERIDOL 5 MG/2 ML VIAL IV PRN (13:28)
[2025-02-12] MEDS: HYDROmorphone 0.5 MG/0.5 ML SYRINGE IV PRN (13:30)
[2025-02-12] MEDS: METHOCARBAMOL 1,000 MG/10 ML VIAL IV ONE (13:34)
[2025-02-12] MEDS: LACTATED RINGERS 1,000 ML IV SCH ×2 (13:42→13:43)
[2025-02-12] MEDS: PYRIDOSTIGMINE BROMIDE 10 MG/2 ML AMPUL IV SCH (17:00)
[2025-02-13 06:21] LABS: Basophils # (Auto) 0.03 K/mcL (0.00-0.30); Basophils % (Auto) 0.2 % (0.0-2.0); Eosinophils # (Auto) 0.05 K/mcL (0.00-0.70); Eosinophils % (Auto) 0.3 % (0.0-7.0); Hemoglobin 8.9 g/dL (11.2-15.7); Lymphocytes % (Auto) 7.7 % (15.5-49.0); Mean Cell Volume 106.9 fL (80.0-100.0); Mean Corpuscular HGB Conc 31.8 g/dL (31.0-36.0); Mean Platelet Volume 8.9 fL (8.8-12.5); Neutrophils % (Auto) 79.8 % (38.0-78.0); Platelet Count 483 K/mcL (140-440); RBC 2.62 M/mcL (3.59-5.38); Red Cell Distribution Width 16.9 % (11.5-14.5); WBC 18.3 K/mcL (4.5-11.0)
[2025-02-13 06:51] LABS: ALT/SGPT 27 U/L (<40); AST/SGOT 29 U/L (<32); Albumin 2.7 gm/dL (3.2-5.2); Alkaline Phosphatase 112 U/L (39-117); Bilirubin,Direct < 0.2 mg/dL (0-0.3); Bilirubin,Total < 0.2 mg/dL (0.1-1.0); Blood Urea Nitrogen 16 mg/dL (8-23); Calcium 8.4 mg/dL (8.6-10.4); Carbon Dioxide 21 mmol/L (22-30); Chloride 103 mmol/L (96-108); Globulin 2.8 gm/dL (2.2-3.7); Glomerular Filtration Rate 104; Glucose 150 mg/dL (70-105); Lactate Dehydrogenase 248 U/L (135-225); Phosphorous 2.2 mg/dL (2.5-4.5); Potassium 4.1 mmol/L (3.3-5.1); Sodium 135 mmol/L (133-145); Triglycerides 122 mg/dL (<150); Uric Acid 1.6 mg/dL (2.5-8.0)
[2025-02-13] MEDS: [UNRECOGNIZED DRUG - REMARK] IV SCH (15:42)
[2025-02-14 09:02] LABS: Basophils # (Auto) 0.06 K/mcL (0.00-0.30); Basophils % (Auto) 0.4 % (0.0-2.0); Eosinophils # (Auto) 0.46 K/mcL (0.00-0.70); Eosinophils % (Auto) 3.4 % (0.0-7.0); Hemoglobin 8.2 g/dL (11.2-15.7); Lymphocytes # (Auto) 1.23 K/mcL (1.50-4.80); Mean Cell Volume 108.8 fL (80.0-100.0); Mean Corpuscular HGB Conc 31.5 g/dL (31.0-36.0); Mean Platelet Volume 8.8 fL (8.8-12.5); Monocytes # (Auto) 1.29 K/mcL (0.10-0.90); Monocytes % (Auto) 9.4 % (1.0-12.0); Neutrophils % (Auto) 76.7 % (38.0-78.0); Platelet Count 406 K/mcL (140-440); RBC 2.39 M/mcL (3.59-5.38); WBC 13.7 K/mcL (4.5-11.0)
[2025-02-14 10:19] LABS: ALT/SGPT 23 U/L (<40); AST/SGOT 19 U/L (<32); Albumin 2.8 gm/dL (3.2-5.2); Alkaline Phosphatase 99 U/L (39-117); Bilirubin,Direct < 0.2 mg/dL (0-0.3); Bilirubin,Total 0.2 mg/dL (0.1-1.0); Blood Urea Nitrogen 12 mg/dL (8-23); Calcium 8.8 mg/dL (8.6-10.4); Carbon Dioxide 23 mmol/L (22-30); Chloride 105 mmol/L (96-108); Globulin 2.9 gm/dL (2.2-3.7); Glomerular Filtration Rate 104; Glucose 87 mg/dL (70-105); Lactate Dehydrogenase 172 U/L (135-225); Phosphorous 3.6 mg/dL (2.5-4.5); Potassium 4.2 mmol/L (3.3-5.1); Sodium 136 mmol/L (133-145); Triglycerides 161 mg/dL (<150); Uric Acid 1.2 mg/dL (2.5-8.0)
[2025-02-14] MEDS: 0.9 % SODIUM CHLORIDE 10 ML SYRINGE IV PRN (13:14)
[2025-02-15 06:43] LABS: Basophils # (Auto) 0.07 K/mcL (0.00-0.30); Basophils % (Auto) 0.7 % (0.0-2.0); Eosinophils # (Auto) 0.55 K/mcL (0.00-0.70); Eosinophils % (Auto) 5.4 % (0.0-7.0); Hematocrit 27.9 % (34.1-44.9); Hemoglobin 8.9 g/dL (11.2-15.7); Lymphocytes # (Auto) 1.57 K/mcL (1.50-4.80); Lymphocytes % (Auto) 15.4 % (15.5-49.0); Mean Cell Volume 107.3 fL (80.0-100.0); Mean Corpuscular HGB Conc 31.9 g/dL (31.0-36.0); Mean Platelet Volume 8.9 fL (8.8-12.5); Monocytes # (Auto) 1.15 K/mcL (0.10-0.90); Monocytes % (Auto) 11.3 % (1.0-12.0); Neutrophils % (Auto) 65.6 % (38.0-78.0); Platelet Count 461 K/mcL (140-440); Red Cell Distribution Width 16.8 % (11.5-14.5); WBC 10.2 K/mcL (4.5-11.0)
[2025-02-16 06:56] LABS: ALT/SGPT 29 U/L (<40); AST/SGOT 44 U/L (<32); Albumin 2.9 gm/dL (3.2-5.2); Alkaline Phosphatase 175 U/L (39-117); Bilirubin,Direct < 0.2 mg/dL (0-0.3); Bilirubin,Total < 0.2 mg/dL (0.1-1.0); Blood Urea Nitrogen 14 mg/dL (8-23); Calcium 8.8 mg/dL (8.6-10.4); Carbon Dioxide 23 mmol/L (22-30); Chloride 106 mmol/L (96-108); Glomerular Filtration Rate 112; Glucose 114 mg/dL (70-105); Lactate Dehydrogenase 465 U/L (135-225); Phosphorous 4.2 mg/dL (2.5-4.5); Potassium 4.1 mmol/L (3.3-5.1); Sodium 138 mmol/L (133-145); Triglycerides 136 mg/dL (<150); Uric Acid 1.2 mg/dL (2.5-8.0)
[2025-02-16] MEDS: [UNRECOGNIZED DRUG - REMARK] IV SCH (15:59)
[2025-02-16] MEDS: MAGNESIUM CITRATE 300 ML ORAL.SOL PO ONE (15:59)
[2025-02-17 06:46] LABS: ALT/SGPT 32 U/L (<40); AST/SGOT 52 U/L (<32); Albumin 2.8 gm/dL (3.2-5.2); Alkaline Phosphatase 161 U/L (39-117); Bilirubin,Direct < 0.2 mg/dL (0-0.3); Bilirubin,Total 0.2 mg/dL (0.1-1.0); Blood Urea Nitrogen 16 mg/dL (8-23); Calcium 8.4 mg/dL (8.6-10.4); Carbon Dioxide 21 mmol/L (22-30); Chloride 104 mmol/L (96-108); Globulin 2.7 gm/dL (2.2-3.7); Glomerular Filtration Rate 98; Glucose 117 mg/dL (70-105); Lactate Dehydrogenase 216 U/L (135-225); Phosphorous 3.7 mg/dL (2.5-4.5); Potassium 4.1 mmol/L (3.3-5.1); Sodium 134 mmol/L (133-145); Triglycerides 140 mg/dL (<150); Uric Acid 1.5 mg/dL (2.5-8.0)
[2025-02-17 06:51] LABS: Basophils # (Auto) 0.08 K/mcL (0.00-0.30); Basophils % (Auto) 0.8 % (0.0-2.0); Eosinophils # (Auto) 0.52 K/mcL (0.00-0.70); Eosinophils % (Auto) 5.2 % (0.0-7.0); Hemoglobin 8.3 g/dL (11.2-15.7); Lymphocytes # (Auto) 1.41 K/mcL (1.50-4.80); Mean Cell Volume 111.1 fL (80.0-100.0); Mean Corpuscular HGB Conc 30.7 g/dL (31.0-36.0); Mean Platelet Volume 9.1 fL (8.8-12.5); Monocytes # (Auto) 1.07 K/mcL (0.10-0.90); Monocytes % (Auto) 10.6 % (1.0-12.0); Neutrophils % (Auto) 68.2 % (38.0-78.0); Platelet Count 293 K/mcL (140-440); RBC 2.43 M/mcL (3.59-5.38); Red Cell Distribution Width 16.4 % (11.5-14.5); WBC 10.1 K/mcL (4.5-11.0)
[2025-02-17] MEDS: MAGNESIUM CITRATE 300 ML ORAL.SOL PO ONE ×2 (10:57→11:22)
[2025-02-17] MEDS ORDERED: [UNRECOGNIZED DRUG - REMARK] IV SCH (15:00)
[2025-02-17] MEDS: [UNRECOGNIZED DRUG - REMARK] IV SCH (15:10)
[2025-02-18 06:34] LABS: ALT/SGPT 40 U/L (<40); AST/SGOT 76 U/L (<32); Albumin 3.2 gm/dL (3.2-5.2); Albumin/Globulin Ratio 1.1 (1.0-2.3); Alkaline Phosphatase 175 U/L (39-117); Bilirubin,Direct < 0.2 mg/dL (0-0.3); Bilirubin,Total 0.2 mg/dL (0.1-1.0); Blood Urea Nitrogen 11 mg/dL (8-23); Calcium 9.2 mg/dL (8.6-10.4); Carbon Dioxide 23 mmol/L (22-30); Chloride 102 mmol/L (96-108); Globulin 2.9 gm/dL (2.2-3.7); Glomerular Filtration Rate 98; Glucose 83 mg/dL (70-105); Lactate Dehydrogenase 278 U/L (135-225); Phosphorous 4.9 mg/dL (2.5-4.5); Potassium 4.4 mmol/L (3.3-5.1); Sodium 135 mmol/L (133-145); Triglycerides 213 mg/dL (<150); Uric Acid 2.8 mg/dL (2.5-8.0)
[2025-02-18] MEDS ORDERED: AMOXICILLIN/POTASSIUM CLAV 875 MG TABLET PO SCH (17:30)
== END 2025-02-18 14:42 | DRG 329 ==
LOC: MEDSUR 11:26
PROVIDERS: ADMIT Family Medicine Adult Medicine; ATTEND Family Medicine Adult Medicine